=== PATIENT | female | born 1980 | race Caucasian/White ===

== ENCOUNTER 2018-10-16 20:08 | Inpatient (IN) | payer OTHER ==
[~2018-10-16] VITALS: Ht 167.6 cm; Wt 59.6 kg
--- NOTE | ~2018-10-16 | EKG ---
[place], [place] ELECTROCARDIOGRAM REPORT NAME: SIENNA MANCINI UNIT #: [id number] ROOM: 521 DOCTOR: SPENCER DRAFT REPORT BIRTHDATE: [birth year] [facility] Test Date: 2018-10-16 Test Time: 20:44:10 Pat Name: SIENNA MANCINI Department: Room: 521 Gender: F Stage Set Designer: Karen Simons : 1980 Requested By: KAITLIN NÚÑEZ Order Number: [id number] Reading MD: Vidhya Merritt MD Measurements Intervals [place] Rate: 70 P: 57 KS: 136 QRS: 31 QRSD: 90 T: -7 QT: 467 QTc: 504 Interpretive Statements Sinus rhythm Borderline T abnormalities, inferior leads Borderline prolonged QT interval Electronically Signed On 10-17-2018 14:30:12 PDT by Vidhya Merritt MD CM:EKGRPT:ELECTROCARDIOGRAM REPORT 1430 KAITLIN CASTRO DRAFT REPORT KAITLIN NÚÑEZ DO
[2018-10-16 20:09] VITALS: BP 146/94
--- NOTE | 2018-10-16 20:25 | NUR ---
PATIENTS CONTACT INFORMATION ARGENIS MANCINI
--- NOTE | 2018-10-16 20:26 | NUR ---
PATIENT AT THIS TIME IS RESTING IN BED. PATIENT DENIES ANY PROBLEMS AT THIS TIME. PATIENTS VITALS WNL
[2018-10-16 20:45] LABS: HEMATOCRIT 32.1 % (37.0-47.0); HEMOGLOBIN 10.6 g/dl (12.0-16.0); MEAN CELL VOLUME 119.3 fl (81.0-99.0); MEAN CORPUSCULAR HGB 39.4 pg (27.0-31.0); MEAN PLATELET VOLUME 10.6 fl (9.6-12.3); PLATELET COUNT AUTOMATED 132 10*3/uL (130-400); RED BLOOD COUNT 2.69 10*6/uL (4.10-5.10); RED CELL DISTRI WIDTH 13.9 % (0-14.5); WHITE BLOOD COUNT 5.6 10*3/uL (4.8-10.8)
[2018-10-16 20:55] LABS: BILIRUBIN NEGATIVE (NEGATIVE); BLOOD TRACE-INTACT (NEGATIVE); CLARITY CLEAR (CLEAR); COLOR YELLOW (YELLOW); GLUCOSE NEGATIVE (NEGATIVE); KETONE NEGATIVE (NEGATIVE); LEUKO ESTERASE TRACE (NEGATIVE); NITRITE NEGATIVE (NEGATIVE); PH 8.5 (5.0-9.0); UROBILINOGEN 0.2 E.U./dl (0.2-1.0)
[2018-10-16 20:56] LABS: URINE AMPHETAMINES < 1000 (1000ng/ml); URINE BARBITURATES > 200 (200ng/ml); URINE BENZODIAZEPINES < 200 (200ng/ml); URINE CANNABINOIDS (THC) < 50 (50ng/ml); URINE COCAINE < 300 (300ng/ml); URINE METHADONE < 300 (300ng/ml); URINE OPIATES < 300 (300ng/ml)
[2018-10-16 21:02] LABS: ALBUMIN 3.2 gm/dl (3.1-4.5); ALKALINE PHOSPHATASE 61 U/L (45-117); BUN 4 mg/dl (7-24); CHLORIDE 102 mmol/L (98-107); CREATININE 0.83 mg/dL (0.55-1.02); POTASSIUM 2.8 mmol/L (3.5-5.1); SGOT/AST 72 IU/L (3-35); SGPT/ALT 42 U/L (12-78); SODIUM 136 mmol/L (136-145); TOTAL PROTEIN 7.2 gm/dL (6.4-8.2)
[2018-10-16 21:03] LABS: TOTAL CELLS COUNTED 100 #CELLS
[2018-10-16 21:04] LABS: ACETAMINOPHEN (TYLENOL) < 5.0 ug/ml (10-30); BETA-HCG, QUANT < 1.0 mIU/mL (1-3); ETHYL ALCOHOL < 3.0 mg/dl (<3); PLATELET SUFFICIENCY NORMAL (NORMAL); TROPONIN I < 0.015 ng/ml (<0.045)
[2018-10-16 21:04] LABS: URINE PHENCYCLIDINE < 25 (25ng/ml)
[2018-10-16 21:09] LABS: EPITHELIAL CELLS 31-40
[2018-10-16 21:10] LABS: BACTERIA TRACE; RBC 0-2 rbc/hpf (0-2); WBC 16-20 wbc/hpf (0-5)
[2018-10-16 21:33] VITALS: BP 100/64
[2018-10-16 22:47] VITALS: BP 119/86
[2018-10-16 23:35] VITALS: BP 132/90
--- NOTE | 2018-10-16 23:35 | NUR ---
A 38, admitted to ICCU, under the services of ALIREZA Argueta DO with a diagnosis of ETOH WITHDRAWL,.SEIZURE. Chief complaint is SEIZURE. Patient arrived via bed from ER. Monitor applied. Initial assessment completed. Vital signs taken and recorded. ALIREZA ARGUETA DO notified of admission to the unit. Orders received. See assessment for past medical history, medications and allergies. Patient and/or family oriented to unit. [facility] ICCU visitation policy reviewed. Clothing/patient valuable form completed. LUPE CARBALLO
[2018-10-17] MEDS ORDERED: PROPRANOLOL HCL10 MG PO (00:13)
[2018-10-17] MEDS ORDERED: LEADER ASPIRIN325 MG PO (00:15)
[2018-10-17] MEDS ORDERED: [UNRECOGNIZED DRUG - OTHER] T (00:16)
[2018-10-17] MEDS ORDERED: MAGNESIUM400 MG PO (00:16)
[2018-10-17] MEDS ORDERED: GAS RELIEF180 MG PO (00:17)
[2018-10-17] MEDS ORDERED: LAXATIVE FEMININ5 MG PO (00:18)
[2018-10-17] MEDS ORDERED: PROTONIX20 MG PO (00:19)
[2018-10-17] MEDS ORDERED: IBU800 M1 PO (00:21)
[2018-10-17] MEDS ORDERED: LEVOTHYROXINE175 MCG PO (00:21)
[2018-10-17] MEDS ORDERED: METOCLOPRAMIDE5 MG PO (00:22)
[2018-10-17] MEDS ORDERED: MULTI-VITAMIN1 EACH PO (00:37)
--- NOTE | 2018-10-17 01:03 | NUR ---
PATIENT REQUESTED SOMETHING TO HELP HER SLEEP. PATIENT GIVEN ATIVAN AND VISTARIL. WILL MONITOR AND REASSESS.
--- NOTE | 2018-10-17 01:30 | NUR ---
PATIENT RESTING, NO SIGNS OF DISTRESS. ATIVAN AND VISTARIL EFFECTIVE.
[2018-10-17 04:00] VITALS: BP 132/91
[2018-10-17 05:52] LABS: ALBUMIN 2.9 gm/dl (3.1-4.5); BUN 4 mg/dl (7-24); CHLORIDE 106 mmol/L (98-107); CHOLESTEROL 192 mg/dL (<200); CREATININE 0.53 mg/dL (0.55-1.02); PHOSPHOROUS 2.9 mg/dL (2.5-4.9); POTASSIUM 2.8 mmol/L (3.5-5.1); SGOT/AST 54 IU/L (3-35); SGPT/ALT 34 U/L (12-78); SODIUM 141 mmol/L (136-145); TOTAL PROTEIN 6.2 gm/dL (6.4-8.2); TRIGLYCERIDES 47 mg/dl (<150); VLDL CHOLESTEROL 9 mg/dL (6-40)
[2018-10-17 05:58] LABS: ALKALINE PHOSPHATASE 53 U/L (45-117); FREE T4 0.83 ng/dl (0.76-1.46); HDL CHOLESTEROL 97 mg/dl (40-60); LDL CHOLESTEROL 86 mg/dL (9-159)
[2018-10-17 06:13] LABS: HEMATOCRIT 30.1 % (37.0-47.0); HEMOGLOBIN 10.2 g/dl (12.0-16.0); MEAN CORPUSCULAR HGB CONC 33.9 g/dl (33.0-37.0); PLATELET COUNT AUTOMATED 134 10*3/uL (130-400); RED BLOOD COUNT 2.55 10*6/uL (4.10-5.10); RED CELL DISTRI WIDTH 13.4 % (0-14.5); WHITE BLOOD COUNT 4.4 10*3/uL (4.8-10.8)
[2018-10-17 06:31] LABS: ACT PARTIAL THROMBO TIME 26.5 SECONDS (20.0-32.1); INTERNATIONAL NORM RATIO 0.9 (2.0-3.5)
[2018-10-17 06:53] LABS: PLATELET SUFFICIENCY NORMAL (NORMAL); TOTAL CELLS COUNTED 100 #CELLS; TOXIC GRANULATION SLIGHT
[2018-10-17 07:02] LABS: VITAMIN D, 25-HYDROXY 22.6 ng/mL (30-100)
--- NOTE | 2018-10-17 07:20 | NUR ---
Shift chart check completed.
[2018-10-17 08:00] VITALS: BP 126/80
--- NOTE | 2018-10-17 08:30 | NUR ---
DR RIGGS ROUNDED AND SPOKE WITH THE PATIENT AT LENGTH
[2018-10-17] MEDS ORDERED: XANAX1 MG PO (08:44)
--- NOTE | 2018-10-17 09:00 | NUR ---
Physician Practice Administrator in to talk to patient. Patient states lives at home with her and 2 children. There are 12 steps in the home. Physician: Dr. Coy but is unsure she will be able to follow with her because her lost his insurance [facility]: [facility] Home health services: none Patient's level of ADLs: INDEPENDENT Patient has working utilities: yes DME: none Follow-up physician's appointment after d/c: will be made by the hospitalist nurse director upon discharge Does patient want to access PORTAL?: no Discharge plan discussed with patient. She was at [facility] and states that is not a place for her. Discussed the hospital's [facility] and she would like to speak to them. Notified [facility] in [facility]. She is interested in activity or meditation therapy. She is independent in her ADLs and ambulation. Discussed home health care services and she denies any home needs at this time. When medically stable she will be discharged to home. Her will transport on discharge. LILA WARREN
--- NOTE | 2018-10-17 09:26 | NUR ---
PT REFUSING SYNTHROID & PROTONIXC AT THIS TIME D/T SHE ALREADY ATE. DR RIGGS ALREADY ROUNDED
[2018-10-17] MEDS ORDERED: PHENOBARBITAL60 MG PO ×2 (10:00→10:03)
[2018-10-17] MEDS ORDERED: BENADRYL25 M2 PO (10:08)
[2018-10-17] MEDS ORDERED: NATURE'S BLEND F1 MG PO (10:12)
[2018-10-17] MEDS ORDERED: 'CLONIDINE0.1 MG PO (10:14)
[2018-10-17] MEDS ORDERED: ATARAX,VISTARIL50 MG PO (10:15)
[2018-10-17] MEDS ORDERED: ASPIRIN ADULT L81 M1 PO (10:16)
[2018-10-17] MEDS ORDERED: BACLOFEN5 MG PO (10:25)
[2018-10-17] MEDS ORDERED: MELATONIN10 M2 PO (10:26)
[2018-10-17] MEDS ORDERED: DICYCLOMINE HCL10 MG PO (10:31)
--- NOTE | 2018-10-17 10:35 | NUR ---
DR RIGGS MADE AWARE THAT MEDS FROM [facility] ARE ADDED TO HOME MED REC. ALSO WANTS TO TALK TO [facility]
[2018-10-17 12:00] VITALS: BP 111/78
--- NOTE | 2018-10-17 13:54 | NUR ---
MOVED TO 521 WITH ALL BELONGINGS. PATIENT'S HOME MEDS AT NURSING STATION & IS AWARE THAT HE MUST STOP & PICK THEM UP TODAY BEFORE HE LEAVES OR WE WILL SEND THEM TO THE PHARMACY SHE IS NOT ALLOWED TO HAVE THEM AT THE BEDSIDE HERE FOR SAFETY REASONS. BOTH PATIENT & VOICED UNDERSTANDING
--- NOTE | 2018-10-17 15:15 | NUR ---
PT REQUESTED AND GIVEN VISTARIL FOR C/O ANXIETY WILL MONITOR
[2018-10-17 16:00] VITALS: BP 109/64; BP 126/99
--- NOTE | 2018-10-17 16:01 | NUR ---
pt resting in bed/ vistaril appears effective. will monitor
--- NOTE | 2018-10-17 16:20 | NUR ---
pt states that she is breaking out in a rash from the vistaril. pt requesting ghada tilley called and notified
--- NOTE | 2018-10-17 16:25 | NUR ---
[facility] STAFF SPOKE WITH PATIENT ABOUT [facility] SERVICES AND REFERRAL OPTIONS. PATIENT IS UNDECIDED ON WHAT SHE WANTS TO DO FOR AFTERCARE. PATIENT DID NOT WANT TO DO [facility] ASSESSMENT WITH [facility] STAFF. PATIENT ASKED IF [facility] STAFF COULD COME BACK. [facility] STAFF PROVIDED PATIENT WITH [facility] STAFF CONTACT INFORMATION. PATIENT STATED THAT SHE IS WILLING TO FINISH HER BENZO TAPER WITH THE [facility] HERE AT THE [facility]. MAGDY HAAS B.A. RECEIVING DISTRIBUTION STATION OPERATOR
--- NOTE | 2018-10-17 19:10 | NUR ---
PT IS AWAKE AND SITTING UP IN BED. SHE STATES THAT SHE IS NOT EXPERIENCING ANY WITHDRAWAL SYMPTOMS AT THIS TIME BUT IS C/O OF ACNE ON HER CHIN. SHE STATES THAT SHE HAS NEVER EXPERIENCED IT THIS BAD UNTIL SHE CAME TO THE HOSPITAL HOWEVER SHE DOES ALWAYS HAVE IT MILDLY. THERE ARE NO S/S OF DISTRESS NOTED. BED IS LOW, CALL LIGHT WITHIN REACH. WILL CONTINUE TO MONITOR.
--- NOTE | 2018-10-17 19:44 | NUR ---
24 HR CHART CHECK COMPLETE.
[2018-10-17 20:00] VITALS: BP 112/78
--- NOTE | 2018-10-17 23:12 | NUR ---
PT MEDICATED WITH PRN VISTARIL. WILL CONTINUE TO MONITOR.
--- NOTE | 2018-10-17 23:30 | NUR ---
24 HR chart check completed.
[2018-10-18] VITALS: BP 120/90
--- NOTE | 2018-10-18 00:30 | NUR ---
SLEEPING. NO DISTRESS NOTED. RESPIRATIONS EASY. VSS. CALL LIGHT WITHIN REACH
--- NOTE | 2018-10-18 03:00 | NUR ---
Patient resting. Responding to scheduled medications with fewer complaints of pain and anxiety.
[2018-10-18 04:00] VITALS: BP 114/73
--- NOTE | 2018-10-18 06:00 | NUR ---
SLEPT THROUGHOUT NIGHT WITH NO ACUTE DISTRESS NOTED. LIBRIUM TAPER MAINTAINED PER ORDER. CALL LIGHT WITHIN REACH. NO VOICED COMPLAINTS THIS SHIFT
--- NOTE | 2018-10-18 07:57 | NUR ---
PT RESTING IN BED. NO DISTRESS NOTED. WILL MONITOR
--- NOTE | 2018-10-18 09:00 | NUR ---
Freelance Displayer in to see patient. No new needs or request at this time. She has received information from [employer]. She denies any other home needs. When medically stable she will be discharged to home.
[2018-10-18 10:03] LABS: HEMATOCRIT 33.6 % (37.0-47.0); HEMOGLOBIN 11.1 g/dl (12.0-16.0); MEAN CORPUSCULAR HGB 39.6 pg (27.0-31.0); MEAN PLATELET VOLUME 10.3 fl (9.6-12.3); PLATELET COUNT AUTOMATED 158 10*3/uL (130-400); RED CELL DISTRI WIDTH 13.6 % (0-14.5); WHITE BLOOD COUNT 4.9 10*3/uL (4.8-10.8)
[2018-10-18 10:16] LABS: BUN 5 mg/dl (7-24); CHLORIDE 103 mmol/L (98-107); SODIUM 138 mmol/L (136-145)
[2018-10-18 11:17] LABS: BASOPHILS 3 % (0-1); PLATELET SUFFICIENCY NORMAL (NORMAL); TOTAL CELLS COUNTED 100 #CELLS
[2018-10-18 12:00] VITALS: BP 121/86
--- NOTE | 2018-10-18 15:18 | NUR ---
[facility] STAFF SPOKE TO PATIENT AGAIN ABOUT [facility] SERVICES. PATIENT IS NOT INTERESTED IN ANY AFTERCARE OR ANY OTHER SERVICES THAT [facility] CAN OFFER HER. MAGDY HAAS B.A. REVENUE FIELD AUDITOR
[2018-10-18 16:00] VITALS: BP 113/88
--- NOTE | 2018-10-18 19:57 | NUR ---
PT REQUESTED AND RECEIVED PO DOXY EARLY TO HAVE WHILE SHE IS EATING DINNER. DENIES ANY OTHER NEEDS AT THIS TIME. WILL MONITOR.
[2018-10-18 20:00] VITALS: BP 115/80
--- NOTE | 2018-10-18 21:15 | NUR ---
PT REQUESTED & RECEIVED PO ROBAXIN FOR C/O MUSCLE ACHES/RESTLESS LEGS AND PO VISTARIL FOR C/O ANXIETY. WILL MONITOR EFFECTIVENESS. DENIES ANY FURTHER NEEDS AT THIS TIME.
[2018-10-19] VITALS: BP 116/82
--- NOTE | 2018-10-19 02:12 | NUR ---
NOW ABLE TO PULL PO LIBRIUM FROM [facility]. PO LIBRIUM ADMINISTERED PER ORDER. PATIENT DENIES ANY NEEDS AT THIS TIME. WILL MONITOR. CALL LIGHT LEFT IN REACH.
--- NOTE | 2018-10-19 05:29 | NUR ---
PT DENIES NEED FOR ANY PRN MEDICATIONS. WILL MONITOR. CALL LIGHT LEFT IN REACH.
[2018-10-19] MEDS ORDERED: PROPRANOLOL HCL10 MG PO (07:15)
[2018-10-19] MEDS ORDERED: LEVOTHYROXINE175 MCG PO (07:15)
[2018-10-19] MEDS ORDERED: DOXYCYCLINE MO100 M1 PO (07:15)
[2018-10-19] MEDS ORDERED: CICLOPIROX15 GM T (07:15)
[2018-10-19] MEDS ORDERED: ASPIRIN ADULT L81 M1 PO (07:15)
[2018-10-19] MEDS ORDERED: METHOCARBAMOL750 M1 PO (07:15)
[2018-10-19] MEDS ORDERED: VITAMIN D32000 UNI1 PO (07:15)
[2018-10-19] MEDS ORDERED: XANAX1 MG PO (07:18)
[2018-10-19 07:48] VITALS: BP 102/74
[2018-10-19 12:20] VITALS: BP 108/70
--- NOTE | 2018-10-19 14:00 | NUR ---
Discharge instructions reviewed with patient/family. Patient receptive and verbalizes understanding. Follow-up care arranged. Written instructions given to patient/family. RACHEL HAWLEY
== END 2018-10-19 14:00 | disposition home or self-care (01) | DRG 896 ==
LOC: ED 20:08 → ICCU 21:41 → EDHOLD 21:41 → 5E 21:41 → ICCU 21:55 → 5E 10-17 13:37
PROVIDERS: Internal Medicine; Student in an Organized Health Care Education/Training Program; ADMIT Emergency Medicine
DX: F13.239 Sedative, hypnotic or anxiolytic dependence with withdrawal, unspecified (principal); E43 Unspecified severe protein-calorie malnutrition; N17.0 Acute kidney failure with tubular necrosis; F10.239 Alcohol dependence with withdrawal, unspecified; B35.1 Tinea unguium; D53.9 Nutritional anemia, unspecified; E87.6 Hypokalemia; R73.9 Hyperglycemia, unspecified; E55.9 Vitamin D deficiency, unspecified; R56.9 Unspecified convulsions; E03.9 Hypothyroidism, unspecified; K21.9 Gastro-esophageal reflux disease without esophagitis; D70.1 Agranulocytosis secondary to cancer chemotherapy; K58.9 Irritable bowel syndrome, unspecified; F41.9 Anxiety disorder, unspecified; Z79.82 Long term (current) use of aspirin; Z79.899 Other long term (current) drug therapy; Z82.49 Family history of ischemic heart disease and other diseases of the circulatory system; Z82.3 Family history of stroke; Z83.49 Family history of other endocrine, nutritional and metabolic diseases; Z68.21 Body mass index [BMI] 21.0-21.9, adult